=== PATIENT | female | born 1970 | race Caucasian/White ===

== ENCOUNTER 2020-08-28 11:57 | Emergency (ER) | payer MEDICARE, MEDICAID, SELFPAY ==
--- NOTE | 2020-08-28 14:49 | PC.NURSE ---
PT CALLED BY [employer], NO RESPONSE AT THIS TIME
== END 2020-08-28 18:01 | disposition left against medical advice (07) ==
PROVIDERS: Emergency Provider Emergency Medicine
DX: M79.659 Pain in unspecified thigh (principal)
CPT/HCPCS: 99281

== ENCOUNTER 2020-10-15 23:31 | Emergency (ER) | payer MEDICARE, MEDICAID, SELFPAY ==
--- NOTE | 2020-10-15 23:48 | ED_ITS ---
HPI - Chest Pain General Chief Complaint: Chest Pain Stated Complaint: Chest pain Time Seen by Provider: 10/15/20 23:47 Source: patient Mode of arrival: ambulatory History of Present Illness HPI narrative: This is a 50-year-old female with significant past medical history of arthritis who presents for chest pain after having been evaluated for same at [facility] on 10/12. She states that the pain started approximately 1 week ago and denies any physical activity at the time and states that she was lying in the bed and developed upper left chest pain that radiates into the back and is ?so severe and she has never experienced this before?. This was not associated with any recent travel, dizziness, shortness of breath, calf swell ing, nausea, or sweating. Patient states that the pain is much worse on deep inspiration but denies any exacerbation by movement. Patient does endorse that yesterday she had no pain, has not taken anything for the pain, but that it started again last night at approximately 7:00 p.m.. Related Data Allergies Allergy/AdvReac Type Severity Reaction Status Date / Time prednisone [PREDNISONE] Allergy Severe MEMORY LOSS Unverified 06/15/20 19:19 Review of Systems Review of Systems: Pertinent positives and negatives as stated in HPI 10 point review of systems is otherwise negative. [facility] Past Medical History Source: nursing notes reviewed Social History Social History Advance Directives: No Advance Directives Information Provided: No Physical Exam Vital Signs: Vital Signs: Last Vital Signs Temp 98.3 F 10/16/20 01:55 Pulse 72 10/16/20 01:55 Resp 16 10/16/20 01:55 BP 126/71 10/16/20 01:55 Pulse Ox 97 10/16/20 01:55 Body Mass Index 38.4 VITAL SIGNS: Reviewed. GENERAL: Patient is tearful, Well developed, well nourished, in no acute distress. NOSE: Nares patent bilateral OROPHARYNX: no oral lesions noted, posterior pharynx clear NECK: Supple, no adenopathy LUNGS: Normal breath sounds. Pain on deep inspiration SpO2<98> CARDIOVASCULAR: Regular rate and rhythm without noted murmurs, no JVD or lower extremity edema. ABDOMEN: Soft, non-tender, non-distended with bowel sounds. MUSCULOSKELETAL: No tenderness, deformities, or effusions noted on gross inspection. EXTREMITIES: No cyanosis, clubbing or edema. SKIN: Inspection of the skin reveals no rashes NEUROLOGIC: Alert and oriented x 4. Course Course Course Narrative: This is a 50-year-old female with history and clinical presentation unlikely to be cardiac ischemic in nature but will rule out lung mass (patient is a long-time smoker), pneumonia, and no evidence to support PE. Review of all investigations is negative for any acute abnormalities, and patient demanded to leave prior to obtaining CT of the chest to evaluate for underlying mass or less likely dissection in etiology for her presenting symptoms. Patient left prior to receiving discharge paperwork which included her ?against medical advise?. Although this was explained to her in great detail in the presence of the nurse. MDM - Chest Pain Lab Data Result diagrams: 10/16/20 00:09 10/16/20 00:09 Labs: Lab Results 10/16/20 10/16/20 10/16/20 Range/Units 00:09 00:09 00:09 WBC 10.8 (4.8-10.8) X10*3/uL RBC 4.99 (4.20-5.50) X10*6/uL Hgb 15.1 (12.0-16.0) g/dl Hct 44.1 (37-47) % MCV 88.4 (80-98) fL MCH 30.3 (27.0-33.0) pg MCHC 34.2 (31.0-35.0) g/dl RDW 12.3 (11.0-16.0) % Plt Count 241 (160-400) X10*3/uL MPV 10.1 (9.4-12.3) fL Immature Gran % (Auto) 0.2 (0.0-0.4) % Neut % (Auto) 49.6 (45-73) % Lymph % (Auto) 41.0 H (20-40) % [place] % (Auto) 6.9 (2-11) % Eos % (Auto) 1.7 (0-4) % Baso % (Auto) 0.6 (0-2) % Lymph # (Auto) 4.4 (1.2-4.9) X10*3/uL [place] # (Auto) 0.7 (0.1-1.2) X10*3/uL Eos # (Auto) 0.2 (0.0-0.4) X10*3/uL Baso # (Auto) 0.1 (0.0-0.2) X10*3/uL Abs Immat Gran (auto) 0.02 (0.00-0.03) X10*3/uL Absolute Neuts (auto) 5.4 (2.0-8.3) X10*3/uL Absolute Nucleated RBC 0.000 (0.0-0.012) X10*3/uL Nucleated RBC % (auto) 0.0 (0.0-0.2) /100WBC Sodium 139 (135-145) mmol/L Potassium 4.0 (3.3-5.1) mmol/l Chloride 102 (96-108) mmol/L Carbon Dioxide 27 (22-29) mmol/L Anion Gap 14 (12-20) BUN 10 (9-16) mg/dL Creatinine 0.87 (0.5-1.4) mg/dL Estim Creat Clear Calc 82.3 Estimated GFR > 60 Random Glucose 108 (60-115) mg/dL Calcium 8.9 (8.4-10.2) mg/dL Total Bilirubin 0.2 (0.0-1.0) mg/dL AST 34 H (5-31) U/L ALT 35 H (0-31) U/L Alkaline Phosphatase 99 (39-117) U/L Troponin I High Sens 3.7 (<3.5-17.0) ng/L Total Protein 7.3 (6.5-8.0) g/dL Albumin 4.1 (3.5-5.0) g/dL ECG Data ECG #1: Attestation: I personally reviewed and interpreted this ECG as follows: Prior ECG tracings: not available for review Interpretation: Normal sinus rhythm, HR-76, no evidence of acute ischemia, [place]/QRS/QTC are within normal limits. Discharge Plan Discharge Clinical Impression: Atypical chest pain Patient Disposition: Left Against Medical Advice Instructions: Chest Pain (ED), Chest Wall Pain (ED) Additional Instructions: 1. Tylenol 1000 mg, orally, every 6 hours as needed for pain control. Do not exceed 4000 mg within 24 hours. 2. Ibuprofen 400 mg, orally with milk or food, every 6 hours as needed for pain control. You may combine with Tylenol for added benefit of pain control. 3. Recommend using lidocaine patch, these are available in every [facility], apply to area of maximal tenderness as directed on the outside packaging. 4. Please follow-up with your primary care provider by calling the office in the morning for further re-evaluation and management. Do not hesitate to return to the emergency department should you develop any acute worsening of your symptoms. Referrals: Physician,Unknown [Primary Care Provider] - 2 days Stand Alone Forms: Against Medical Advice Interventions: ED Discharge Assessment Last Done: 10/16/20 02:45 Discharge Date/Time: 10/16/20 02:48
[2020-10-15 23:54] VITALS: BP 151/80; PULSE 89; RESP 18; TEMP 36.3; O2SAT 98; BMI 38.4
--- NOTE | 2020-10-16 | ECG_ITS ---
Test Reason : chest pain Blood Pressure : / mmHG Vent. Rate : 076 BPM Atrial Rate : 076 BPM P-R Int : 126 ms QRS Dur : 078 ms QT Int : 398 ms P-R-T Axes : 053 022 025 degrees QTc Int : 447 ms Normal sinus rhythm Nonspecific ST and T wave abnormality Borderline ECG No previous ECGs available Referred By: Cat Orta Electronically Signed By:VERNON OLSON
[2020-10-16 00:26] LABS: Basophils Absolute Auto 0.1 X10*3/uL (0.0-0.2); Basophils Percent Auto 0.6 % (0-2); Eosinophils Absolute Auto 0.2 X10*3/uL (0.0-0.4); Eosinophils Percent Auto 1.7 % (0-4); Hematocrit 44.1 % (37-47); Hemoglobin 15.1 g/dl (12.0-16.0); Imm Gran Abs Auto 0.02 X10*3/uL (0.00-0.03); Imm Gran Pct Auto 0.2 % (0.0-0.4); Lymphocytes Absolute Auto 4.4 X10*3/uL (1.2-4.9); MANUAL DIFF FLAG NO; Mean Corpuscular HGB Conc 34.2 g/dl (31.0-35.0); Mean Corpuscular Hemoglobin 30.3 pg (27.0-33.0); Mean Corpuscular Volume 88.4 fL (80-98); Mean Platelet Volume 10.1 fL (9.4-12.3); Monocytes Absolute Auto 0.7 X10*3/uL (0.1-1.2); Monocytes Percent Auto 6.9 % (2-11); Neutrophils Absolute Auto 5.4 X10*3/uL (2.0-8.3); Neutrophils Percent Auto 49.6 % (45-73); Platelet Count 241 X10*3/uL (160-400); Red Blood Count 4.99 X10*6/uL (4.20-5.50); Red Cell Distribution Width 12.3 % (11.0-16.0); White Blood Count 10.8 X10*3/uL (4.8-10.8)
[2020-10-16 00:55] LABS: Alanine Aminotransferase 35 U/L (0-31); Albumin Level 4.1 g/dL (3.5-5.0); Alkaline Phosphatase 99 U/L (39-117); Anion Gap 14 (12-20); Aspartate Amino Transferase 34 U/L (5-31); Bilirubin Total 0.2 mg/dL (0.0-1.0); Blood Urea Nitrogen 10 mg/dL (9-16); Calcium 8.9 mg/dL (8.4-10.2); Carbon Dioxide 27 mmol/L (22-29); Chloride 102 mmol/L (96-108); Creatinine Clr Calc Pharmacy 82.3; Estimated Glomerular Filt Rate > 60; Glucose Random 108 mg/dL (60-115); Sodium 139 mmol/L (135-145); Total Protein 7.3 g/dL (6.5-8.0)
[2020-10-16 00:58] LABS: Troponin-I High Sensitivity 3.7 ng/L (<3.5-17.0)
[2020-10-16] MEDS: Acetaminophen 325 MG TABLET 975 MG PO (01:08)
[2020-10-16] MEDS: Ketorolac Tromethamine 15 MG/ML VIAL IVPUSH (01:09)
[2020-10-16 01:55] VITALS: BP 126/71; PULSE 72; RESP 16; TEMP 36.8; O2SAT 97
== END 2020-10-16 02:48 | disposition left against medical advice (07) ==
PROVIDERS: Emergency Provider Student in an Organized Health Care Education/Training Program
DX: R07.89 Other chest pain (principal)
CPT/HCPCS: 36415; 80053; 84484; 85025; 93005; 96372; 99284; J1885

== ENCOUNTER 2021-10-01 09:52 | Emergency (ER) | payer MEDICARE, MEDICAID, SELFPAY | END 2021-10-01 12:43 | disposition left against medical advice (07) | PROVIDERS: Emergency Provider Emergency Medicine; PCP Nurse Practitioner | DX: M25.511 Pain in right shoulder (principal) ==